=== PATIENT | female | born 1950 | race Caucasian/White ===

== ENCOUNTER 2017-07-31 05:35 | Day surgery (SDC) | payer OTHER ==
[2017-07-31] VITALS (11 sets, daily range): BP systolic 83–132; BP diastolic 50–75; PULSE 51–87; TEMP 97.4–98.6
[~2017-07-31] VITALS: Ht 172.7 cm; Wt 74.7 kg
[~2017-07-31 05:35] MED LIST: NO HOME MEDICATIONS; ST JOHNS WART; VALTREX PO; [UNRECOGNIZED DRUG - OTHER]
[2017-07-31] MEDS ORDERED: B-121000 MCG PO (06:25)
[2017-07-31] MEDS ORDERED: NATURAL GINKGO500 MG PO (06:26)
[2017-08-01 00:04] VITALS: BP 108/52; PULSE 72; TEMP 98.3
[2017-08-01 03:56] VITALS: BP 106/44; PULSE 63; TEMP 98.1
[2017-08-01 09:55] VITALS: BP 108/61; PULSE 55; TEMP 97.6
== END 2017-08-01 10:40 | disposition home or self-care (01) ==
LOC: SDCO 05:35 → SURG 11:15 → SDCO 08-01 10:40
DX: N99.3 Prolapse of vaginal vault after hysterectomy (principal); D53.9 Nutritional anemia, unspecified; E88.09 Other disorders of plasma-protein metabolism, not elsewhere classified; N39.46 Mixed incontinence; Z90.710 Acquired absence of both cervix and uterus; Z86.010 Personal history of colon polyps; Z85.828 Personal history of other malignant neoplasm of skin; Z80.3 Family history of malignant neoplasm of breast; Z80.0 Family history of malignant neoplasm of digestive organs; Z83.3 Family history of diabetes mellitus
CPT/HCPCS: OP; A4314; A9284; C1713; C1781; J0690; J1885; J2405; J2704; J2710; J3010; J7120